=== PATIENT | female | born 1930 | race Caucasian/White ===

== ENCOUNTER → 2016-09-27 | Outpatient (CLI) | payer MEDICARE, OTHER ==
[~2016-09-27] MED LIST: AMLODIPINE BESYL5 MG PO; AMPICILLIN500 MG PO; ANTIVERT12.5 MG PO; ASPIR-LOW81 MG PO; ASPIRIN81 M1 PO; CALCIUM + VITA1 EAC2 PO; CALCIUM WITH D1 CTB PO; CARDIZEM CD240 MG PO; CARTIA XT240 MG PO; CEFTIN125 MG/5 M PO; CENTRUM SILVER1 TA1 PO; CIPRO500 MG PO; CITRACAL + D 311 TAB PO; COLACE100 MG PO; COUMADIN4 M2 PO; COUMADIN6 M2 PO; CRESTOR10 M1 PO; Coumadin2 MG PO; Coumadin2.5 MG PO; Coumadin5 MG PO; FLOMAX0.4 MG PO; HYDROCHLOROTHIA25 M1 PO; IMDUR SA60 M1 PO; JANTOVEN4 M1 PO; KETOROLAC TROMET5 M3 OD; LEVOTHYROXIN0.075 MG PO; LEVOTHYROXINE0.05 MG PO; LISINOPRIL20 MG PO; LOVENOX EASYINJ1 DEV SC; MULTI VITAMINS1 TAB PO; NORVASC2.5 MG PO; OCUFLOX 0.3% 5 M5 ML INTRAOC; OCUFLOX 0.3% 5 M5 ML OS; OCUFLOX 0.3% 5 M5 ML OU; OMEPRAZOLE20 M2 PO; PRILOSEC20 M1 PO; PROMETHAZINE12.5 M1 PO; RITE AID ACID150 MG PO; SENOKOT S 50 MG1 TAB PO; SYNTHROID,LEVO75 MCG PO; Synthroid,Lev100 MCG PO; Synthroid,Levo25 MCG PO; Synthroid,Levo50 MCG PO; TOPROL XL25 MG PO; TOPROL XL50 M1 PO; VITAMIN C500 M4 PO; VITAMIN C500 MG/15 PO; WARFARIN2 MG PO; ZOCOR10 MG PO; ZOFRAN ODT4 MG SL; ZOFRAN4 MG PO; Zofran4 MG PO
[2016-09-27 12:22] LABS: BASO # 0.1 10*3/uL (0.0-0.1); BASO % 2.1 % (0.0-1.0); EOS # 0.1 10*3/uL (0.0-0.4); EOS % 2.8 % (1.0-4.0); HEMATOCRIT 33.1 % (37.0-47.0); LYMPH # 0.9 10*3/uL (1.3-4.4); LYMPH % 19.2 % (27.0-41.0); MEAN CELL VOLUME 96.5 fl (81.0-99.0); MEAN CORPUSCULAR HGB 32.1 pg (27.0-31.0); MEAN CORPUSCULAR HGB CONC 33.2 g/dl (33.0-37.0); MEAN PLATELET VOLUME 9.6 fl (9.6-12.3); MONO # 0.6 10*3/uL (0.1-1.0); MONO % 12.6 % (3.0-9.0); NEUT % 63.1 % (47.0-73.0); PLATELET COUNT AUTOMATED 261 10*3/uL (130-400); RED BLOOD COUNT 3.43 10*6/uL (4.10-5.10); RED CELL DISTRI WIDTH 12.6 % (0-14.5); WHITE BLOOD COUNT 4.7 10*3/uL (4.8-10.8)
[2016-09-27 12:56] LABS: ALBUMIN 3.3 gm/dl (3.1-4.5); ALKALINE PHOSPHATASE 189 U/L (45-117); BILIRUBIN, TOTAL 0.6 mg/dl (0.2-1.0); BUN 15 mg/dl (7-24); CARBON DIOXIDE 29 mmol/L (21-32); CHLORIDE 96 mmol/L (98-107); EST GLOM FILT AFRICAN AMERICAN > 60 ml/min; GLUCOSE 91 mg/dL (65-99); POTASSIUM 4.2 mmol/L (3.5-5.1); SGOT/AST 33 IU/L (3-35); SGPT/ALT 41 U/L (12-78); SODIUM 133 mmol/L (136-145); TOTAL PROTEIN 7.2 gm/dL (6.4-8.2)
== END | disposition home or self-care (01) ==
LOC: LAB 11:49
PROVIDERS: Family Medicine
DX: R41.0 Disorientation, unspecified (principal); R20.0 Anesthesia of skin

== ENCOUNTER 2016-11-06 02:08 | Inpatient (IN) | payer MEDICARE, OTHER ==
[~2016-11-06] VITALS: Ht 157.4 cm; Wt 44.9 kg
[~2016-11-06 02:08] MED LIST changes: -LISINOPRIL20 MG PO; +ZESTRIL40 MG PO
[2016-11-06 02:14] VITALS: BP 175/80
[2016-11-06 02:57] LABS: BASO # 0.1 10*3/uL (0.0-0.1); BASO % 0.9 % (0.0-1.0); EOS # 0.1 10*3/uL (0.0-0.4); EOS % 2.2 % (1.0-4.0); HEMATOCRIT 28.2 % (37.0-47.0); HEMOGLOBIN 9.2 g/dl (12.0-16.0); LYMPH # 1.1 10*3/uL (1.3-4.4); LYMPH % 17.2 % (27.0-41.0); MEAN CELL VOLUME 98.9 fl (81.0-99.0); MEAN CORPUSCULAR HGB 32.3 pg (27.0-31.0); MEAN CORPUSCULAR HGB CONC 32.6 g/dl (33.0-37.0); MEAN PLATELET VOLUME 9.6 fl (9.6-12.3); MONO # 0.8 10*3/uL (0.1-1.0); NEUT # 4.3 10*3/uL (2.3-7.9); NEUT % 66.5 % (47.0-73.0); PLATELET COUNT AUTOMATED 236 10*3/uL (130-400); RED BLOOD COUNT 2.85 10*6/uL (4.10-5.10); RED CELL DISTRI WIDTH 12.5 % (0-14.5); WHITE BLOOD COUNT 6.4 10*3/uL (4.8-10.8)
[2016-11-06 03:09] LABS: BILIRUBIN NEGATIVE (NEGATIVE); BLOOD NEGATIVE (NEGATIVE); CLARITY CLEAR (CLEAR); COLOR YELLOW (YELLOW); GLUCOSE NEGATIVE (NEGATIVE); KETONE NEGATIVE (NEGATIVE); LEUKO ESTERASE 1+ (NEGATIVE); NITRITE NEGATIVE (NEGATIVE); PH 6.5 (5.0-9.0); UROBILINOGEN 0.2 E.U./dl (0.2-1.0)
[2016-11-06 03:10] LABS: ACT PARTIAL THROMBO TIME 40.2 SECONDS (20.8-31.5); INTERNATIONAL NORM RATIO 3.5 (2.0-3.5)
[2016-11-06 03:15] LABS: BACTERIA TRACE; WBC 21-30 wbc/hpf (0-5)
[2016-11-06 03:17] LABS: ALKALINE PHOSPHATASE 130 U/L (45-117); BUN 17 mg/dl (7-24); CHLORIDE 102 mmol/L (98-107); CREATININE 0.82 mg/dL (0.55-1.02); LIPASE 145 U/L (73-393); POTASSIUM 4.2 mmol/L (3.5-5.1); SGOT/AST 28 IU/L (3-35); SGPT/ALT 31 U/L (12-78); SODIUM 138 mmol/L (136-145); TOTAL PROTEIN 6.4 gm/dL (6.4-8.2)
[2016-11-06 03:24] LABS: TROPONIN I < 0.015 ng/ml (<0.045)
[2016-11-06 05:00] VITALS: BP 166/77
[2016-11-06 08:00] VITALS: BP 128/74
--- NOTE | 2016-11-06 09:00 | NUR ---
Batch Unloader in to talk to patient. Patient states lives at home with alone. There are few steps in the home. Physician: in [place], doesn't remember his name [facility]acy: [facility] Home health services: none Patient's level of ADLs: INDEPENDENT Patient has working utilities: all working DME: walker Follow-up physician's appointment after d/c: will be made by hospitalist nurse director upon discharge Does patient want to access PORTAL?: no Discharge plan discussed with patient, patient lives at home a lone, she uses a walker for ambulation, patient stated that she is independent in adls, she also stated that she has a neighbor and his that look after her, set her medications out and take her wherever she needs to go. discussed with patient a discharge plan and she stated she would be returning home, also discussed VNA and she refused any services at this time, case management will follow. BARBARA AUSTIN
[2016-11-06] MEDS ORDERED: COUMADIN4 M2 PO (09:38)
--- NOTE | 2016-11-06 09:39 | NUR ---
[facility] CALLED AT THIS TIME REGARDING VERIFICATION OF MEDS. MEDS VERIFIED AT THIS TIME PER POLICY.
[2016-11-06 12:00] VITALS: BP 164/76
--- NOTE | 2016-11-06 13:39 | NUR ---
PHYSICAL THERAPY PAtient evaluated on 4, full evaluation to follow. Continue with PT as per plan of care with fall precautions. Home, as prior, for d/c planning - with home health RN prn. PAtient is low complexity via chart review, tests and evaluation: 30436. Thank you for this referral. marion Cervantes,PT
[2016-11-06 16:00] VITALS: BP 160/53
[2016-11-06 20:00] VITALS: BP 156/42
[2016-11-07] VITALS: BP 159/72
[2016-11-07 05:58] LABS: ALBUMIN 2.8 gm/dl (3.1-4.5); ALKALINE PHOSPHATASE 109 U/L (45-117); BUN 12 mg/dl (7-24); CHLORIDE 106 mmol/L (98-107); CREATININE 0.69 mg/dL (0.55-1.02); POTASSIUM 4.4 mmol/L (3.5-5.1); SGOT/AST 27 IU/L (3-35); SGPT/ALT 25 U/L (12-78); SODIUM 139 mmol/L (136-145); TOTAL PROTEIN 5.7 gm/dL (6.4-8.2)
[2016-11-07 06:12] LABS: BASO # 0.1 10*3/uL (0.0-0.1); BASO % 1.5 % (0.0-1.0); EOS # 0.2 10*3/uL (0.0-0.4); HEMATOCRIT 26.5 % (37.0-47.0); HEMOGLOBIN 8.9 g/dl (12.0-16.0); LYMPH # 1.3 10*3/uL (1.3-4.4); LYMPH % 26.3 % (27.0-41.0); MEAN CELL VOLUME 99.6 fl (81.0-99.0); MEAN CORPUSCULAR HGB 33.5 pg (27.0-31.0); MEAN CORPUSCULAR HGB CONC 33.6 g/dl (33.0-37.0); MEAN PLATELET VOLUME 10.6 fl (9.6-12.3); MONO # 0.6 10*3/uL (0.1-1.0); MONO % 12.2 % (3.0-9.0); NEUT # 2.6 10*3/uL (2.3-7.9); NEUT % 54.8 % (47.0-73.0); PLATELET COUNT AUTOMATED 237 10*3/uL (130-400); RED BLOOD COUNT 2.66 10*6/uL (4.10-5.10); RED CELL DISTRI WIDTH 12.8 % (0-14.5); WHITE BLOOD COUNT 4.8 10*3/uL (4.8-10.8)
[2016-11-07 08:00] VITALS: BP 188/66
--- NOTE | 2016-11-07 09:00 | NUR ---
case management visits with patient, patient denies any home needs
--- NOTE | 2016-11-07 10:20 | NUR ---
PHYSICAL THERAPY Candy seen this AM 1:1 for her therapy session and did very well this AM. All transfers were supervision X 1, no LOB. Gait with her wheeled walker 85' X 2, supervision X 1, and little verbal cueing for gait, walker, turn and balance safety, Pt has IV Pole today, back supinr in bed call light phone and breakfast in at this time. MEGHAN ROTHMAN ELECTRIC MOTOR ASSEMBLER AND TESTER.
[2016-11-07 12:00] VITALS: BP 160/76
--- NOTE | 2016-11-07 15:12 | NUR ---
PT C/O CONSTIPATION REQUESTING SOMETHING TO HELP BOWELS MOVE, ADMINISTERED DULCOLAX 5MG PO PRN PER ORDERS, WILL MONITOR EFFECTS
[2016-11-07 16:00] VITALS: BP 158/64
--- NOTE | 2016-11-07 19:25 | NUR ---
PT. A&OX3. LUNG SOUNDS DIMINISHED THROUGHOUT, PT. DENIES SOB AT THIS TIME. MURMUR ON AUSCULTATION, NO EDEMA, PPP, DENIES CHEST PAIN AT THIS TIME. PT. AMBULATES WITH WALKER AND 1 ASSIST. CALL LIGHT WITHIN REACH, BED IN LOWEST POSITION, WHEELS LOCKED.
[2016-11-07 20:00] VITALS: BP 123/82
--- NOTE | 2016-11-07 23:19 | NUR ---
24 HOUR CHART CHECK COMPLETED AT THIS TIME.
[2016-11-08] VITALS: BP 198/78; BP 198/80
--- NOTE | 2016-11-08 00:22 | NUR ---
PADMINI NOTIFIED ME OF PT. HIGH BP. OBTAINED MANUAL 198/80. BP AT THIS TIME. CALLED DR. JARA, HE SAID HE WOULD PUT IN ORDERS FOR HYDRALAZINE.
--- NOTE | 2016-11-08 02:48 | NUR ---
PT. BP RECHECKED 130/70, PT. STILL ANXIOUS, GIVEN RESTORIL 15 MG @ 0248. CALL LIGHT WITHIN WITHIN REACH, SON AT BEDSIDE.
[2016-11-08 06:37] LABS: BASO # 0.1 10*3/uL (0.0-0.1); BASO % 0.9 % (0.0-1.0); EOS # 0.2 10*3/uL (0.0-0.4); EOS % 3.6 % (1.0-4.0); HEMATOCRIT 25.6 % (37.0-47.0); HEMOGLOBIN 8.4 g/dl (12.0-16.0); LYMPH # 0.9 10*3/uL (1.3-4.4); LYMPH % 14.8 % (27.0-41.0); MEAN CELL VOLUME 97.3 fl (81.0-99.0); MEAN CORPUSCULAR HGB 31.9 pg (27.0-31.0); MEAN CORPUSCULAR HGB CONC 32.8 g/dl (33.0-37.0); MONO # 0.8 10*3/uL (0.1-1.0); MONO % 11.8 % (3.0-9.0); NEUT # 4.4 10*3/uL (2.3-7.9); NEUT % 68.7 % (47.0-73.0); PLATELET COUNT AUTOMATED 209 10*3/uL (130-400); RED BLOOD COUNT 2.63 10*6/uL (4.10-5.10); RED CELL DISTRI WIDTH 12.9 % (0-14.5); WHITE BLOOD COUNT 6.4 10*3/uL (4.8-10.8)
[2016-11-08 07:00] LABS: ALBUMIN 2.6 gm/dl (3.1-4.5); ALKALINE PHOSPHATASE 111 U/L (45-117); BUN 10 mg/dl (7-24); CHLORIDE 105 mmol/L (98-107); CREATININE 0.55 mg/dL (0.55-1.02); POTASSIUM 3.6 mmol/L (3.5-5.1); SGOT/AST 26 IU/L (3-35); SGPT/ALT 26 U/L (12-78); SODIUM 140 mmol/L (136-145); TOTAL PROTEIN 5.6 gm/dL (6.4-8.2)
[2016-11-08 08:00] VITALS: BP 142/60
[2016-11-08 10:55] LABS: INTERNATIONAL NORM RATIO 1.7 (2.0-3.5)
[2016-11-08] MEDS ORDERED: CIPRO500 MG PO (12:28)
[2016-11-08] MEDS ORDERED: COUMADIN2 MG PO (12:28)
--- NOTE | 2016-11-08 13:38 | NUR ---
SPOEK TO PT REGARDING DISCHARGE TODAY. SHE STATES "OH YES I AM HOPING TO GO HOME TODAY." DR GARCIA NOTIFIED
--- NOTE | 2016-11-08 14:52 | NUR ---
PER PT CALLED HER FRIEND KAREN TO ARRANGE A RIDE HOME AT TIME OF DISCHARGE. KAREN STATES HE WILL BE HERE TO GET HER AROUND 3:30-4PM
[2016-11-08 16:00] VITALS: BP 160/59
--- NOTE | 2016-11-08 16:30 | NUR ---
CALL PLACED TO PT'S FRIEND KAREN TO INCQUIRE ABOUT INTERN ARCHITECT TIME. NO ANSWER AT THIS TIME.
--- NOTE | 2016-11-08 17:19 | NUR ---
Discharge instructions reviewed with patient/family. Patient receptive and verbalizes understanding. Follow-up care arranged. Written instructions given to patient/family. Pt transported to [facility] via wheelchair, accompanied by staff and friend.
--- NOTE | 2016-11-11 07:48 | NUR ---
PHYSICAL THERAPY CO-SIGN I approve of the Phyical Therapy notes written above. ZA MIN PT
== END 2016-11-08 17:19 | disposition home or self-care (01) | DRG 872 ==
LOC: ED 02:08 → EDHOLD 03:55 → 4E 03:55
PROVIDERS: Emergency Medicine Emergency Medical Services; Family Medicine; Internal Medicine; Registered Nurse; ADMIT Internal Medicine
DX: A41.9 Sepsis, unspecified organism (principal); E44.0 Moderate protein-calorie malnutrition; I48.0 Paroxysmal atrial fibrillation; D68.59 Other primary thrombophilia; E83.51 Hypocalcemia; N39.0 Urinary tract infection, site not specified; R54 Age-related physical debility; I10 Essential (primary) hypertension; Z68.1 Body mass index [BMI] 19.9 or less, adult; M79.601 Pain in right arm; E78.5 Hyperlipidemia, unspecified; E03.9 Hypothyroidism, unspecified; I25.10 Atherosclerotic heart disease of native coronary artery without angina pectoris; D64.9 Anemia, unspecified; Z86.73 Personal history of transient ischemic attack (TIA), and cerebral infarction without residual deficits; Z79.01 Long term (current) use of anticoagulants; I25.2 Old myocardial infarction; Z88.2 Allergy status to sulfonamides; Z88.8 Allergy status to other drugs, medicaments and biological substances; Z91.09 Other allergy status, other than to drugs and biological substances; Z79.899 Other long term (current) drug therapy; Z90.49 Acquired absence of other specified parts of digestive tract; Z98.51 Tubal ligation status; Z87.81 Personal history of (healed) traumatic fracture; Z98.49 Cataract extraction status, unspecified eye; Z82.49 Family history of ischemic heart disease and other diseases of the circulatory system; Z79.82 Long term (current) use of aspirin; M79.602 Pain in left arm

== ENCOUNTER 2017-02-08 07:16 | Inpatient (IN) | payer MEDICARE, OTHER ==
[~2017-02-08] VITALS: Ht 152.4 cm; Wt 43.7 kg
--- NOTE | ~2017-02-08 | EKG ---
[place], [place] ELECTROCARDIOGRAM REPORT NAME: AVINASH GONZALEZ UNIT #: [id number] ROOM: 508 DOCTOR: JOANN CARLIN,ES BIRTHDATE: [birth year] DOS: 02/08/2017 TIME: 7:54 a.m. IMPRESSION: 1. Sinus rhythm. 2. Baseline artifacts. 3. Nondiagnostic ST elevation in the anterior leads, cannot rule out subacute or old infarction. 4. Normal QT interval. ES DAVID MD CM:EKGRPT:ELECTROCARDIOGRAM REPORT [id number] ES DAVID MD
[2017-02-08 07:16] VITALS: BP 178/80
[~2017-02-08 07:16] MED LIST changes: +COUMADIN2 MG PO
[2017-02-08 07:27] LABS: BILIRUBIN NEGATIVE (NEGATIVE); BLOOD TRACE-INTACT (NEGATIVE); CLARITY CLEAR (CLEAR); COLOR YELLOW (YELLOW); GLUCOSE NEGATIVE (NEGATIVE); KETONE NEGATIVE (NEGATIVE); LEUKO ESTERASE 2+ (NEGATIVE); NITRITE NEGATIVE (NEGATIVE); UROBILINOGEN 0.2 E.U./dl (0.2-1.0)
[2017-02-08 07:33] LABS: BASO # 0.1 10*3/uL (0.0-0.1); BASO % 0.8 % (0.0-1.0); EOS % 0.2 % (1.0-4.0); HEMATOCRIT 32.5 % (37.0-47.0); HEMOGLOBIN 11.1 g/dl (12.0-16.0); LYMPH # 0.7 10*3/uL (1.3-4.4); LYMPH % 7.2 % (27.0-41.0); MEAN CELL VOLUME 95.6 fl (81.0-99.0); MEAN CORPUSCULAR HGB 32.6 pg (27.0-31.0); MEAN CORPUSCULAR HGB CONC 34.2 g/dl (33.0-37.0); MEAN PLATELET VOLUME 9.4 fl (9.6-12.3); MONO # 0.7 10*3/uL (0.1-1.0); MONO % 6.8 % (3.0-9.0); NEUT # 8.4 10*3/uL (2.3-7.9); NEUT % 84.7 % (47.0-73.0); PLATELET COUNT AUTOMATED 270 10*3/uL (130-400); RED CELL DISTRI WIDTH 12.3 % (0-14.5); WHITE BLOOD COUNT 9.9 10*3/uL (4.8-10.8)
[2017-02-08] MEDS ORDERED: COUMADIN5 M2 PO (07:38)
[2017-02-08] MEDS ORDERED: PEPCID COMPLET1 EACH PO (07:41)
[2017-02-08 07:44] LABS: ACT PARTIAL THROMBO TIME 33.5 SECONDS (20.8-31.5); INTERNATIONAL NORM RATIO 2.4 (2.0-3.5)
[2017-02-08 07:54] LABS: BACTERIA 1+; WBC 21-30 wbc/hpf (0-5)
[2017-02-08 07:55] LABS: ALBUMIN 3.8 gm/dl (3.1-4.5); ALKALINE PHOSPHATASE 92 U/L (45-117); BUN 17 mg/dl (7-24); CHLORIDE 93 mmol/L (98-107); CREATININE 0.78 mg/dL (0.55-1.02); POTASSIUM 4.4 mmol/L (3.5-5.1); SGOT/AST 25 IU/L (3-35); SGPT/ALT 27 U/L (12-78); SODIUM 131 mmol/L (136-145); TOTAL PROTEIN 7.3 gm/dL (6.4-8.2)
[2017-02-08 08:00] LABS: TROPONIN I < 0.015 ng/ml (<0.045)
[2017-02-08 09:02] VITALS: BP 180/82
[2017-02-08 09:08] VITALS: BP 163/91
[2017-02-08 09:15] VITALS: BP 163/91
[2017-02-08] MEDS ORDERED: ESTRACE 0.01%42.5 GM V (13:31)
[2017-02-08 16:00] VITALS: BP 138/38
[2017-02-08 20:00] VITALS: BP 140/50
[2017-02-09] VITALS: BP 138/50
[2017-02-09 06:49] LABS: BASO # 0.1 10*3/uL (0.0-0.1); EOS # 0.1 10*3/uL (0.0-0.4); HEMATOCRIT 28.9 % (37.0-47.0); HEMOGLOBIN 9.6 g/dl (12.0-16.0); LYMPH # 1.4 10*3/uL (1.3-4.4); LYMPH % 28.8 % (27.0-41.0); MEAN CELL VOLUME 96.7 fl (81.0-99.0); MEAN CORPUSCULAR HGB 32.1 pg (27.0-31.0); MEAN CORPUSCULAR HGB CONC 33.2 g/dl (33.0-37.0); MEAN PLATELET VOLUME 10.2 fl (9.6-12.3); MONO # 0.9 10*3/uL (0.1-1.0); MONO % 17.5 % (3.0-9.0); NEUT # 2.5 10*3/uL (2.3-7.9); NEUT % 49.5 % (47.0-73.0); PLATELET COUNT AUTOMATED 245 10*3/uL (130-400); RED BLOOD COUNT 2.99 10*6/uL (4.10-5.10); RED CELL DISTRI WIDTH 12.5 % (0-14.5)
[2017-02-09 06:50] LABS: ALBUMIN 3.1 gm/dl (3.1-4.5); ALKALINE PHOSPHATASE 76 U/L (45-117); BUN 11 mg/dl (7-24); CHLORIDE 98 mmol/L (98-107); CHOLESTEROL 172 mg/dL (<200); CREATININE 0.75 mg/dL (0.55-1.02); HDL CHOLESTEROL 92 mg/dl (40-60); LDL CHOLESTEROL 70 mg/dL (9-159); PHOSPHOROUS 3.4 mg/dL (2.5-4.9); POTASSIUM 4.2 mmol/L (3.5-5.1); SGOT/AST 17 IU/L (3-35); SGPT/ALT 22 U/L (12-78); SODIUM 133 mmol/L (136-145); TOTAL PROTEIN 6.2 gm/dL (6.4-8.2); TRIGLYCERIDES 49 mg/dl (<150); VLDL CHOLESTEROL 10 mg/dL (6-40)
[2017-02-09 08:00] VITALS: BP 132/59
[2017-02-09 12:00] VITALS: BP 153/54
[2017-02-09] MEDS ORDERED: MONUROL3 G1 PO (12:51)
== END 2017-02-09 16:41 | disposition home or self-care (01) | DRG 871 ==
LOC: ED 07:16 → 5E 08:44 → EDHOLD 08:44 → 5E 08:51
PROVIDERS: Student in an Organized Health Care Education/Training Program; ADMIT Internal Medicine
DX: A41.9 Sepsis, unspecified organism (principal); G93.41 Metabolic encephalopathy; D68.59 Other primary thrombophilia; I48.0 Paroxysmal atrial fibrillation; E86.0 Dehydration; E87.1 Hypo-osmolality and hyponatremia; I25.10 Atherosclerotic heart disease of native coronary artery without angina pectoris; I10 Essential (primary) hypertension; E78.5 Hyperlipidemia, unspecified; N39.0 Urinary tract infection, site not specified; R65.20 Severe sepsis without septic shock; Z66 Do not resuscitate; Z51.5 Encounter for palliative care; R54 Age-related physical debility; Z79.01 Long term (current) use of anticoagulants; Z86.73 Personal history of transient ischemic attack (TIA), and cerebral infarction without residual deficits; Z90.49 Acquired absence of other specified parts of digestive tract; Z82.49 Family history of ischemic heart disease and other diseases of the circulatory system; Z79.82 Long term (current) use of aspirin; Z79.899 Other long term (current) drug therapy; Z88.4 Allergy status to anesthetic agent; Z88.2 Allergy status to sulfonamides; Z91.09 Other allergy status, other than to drugs and biological substances

== ENCOUNTER 2017-02-20 16:56 | Inpatient (IN) | payer MEDICARE, OTHER ==
[~2017-02-20] VITALS: Ht 157.4 cm; Wt 45.5 kg
[~2017-02-20 16:56] MED LIST changes: +COUMADIN5 M2 PO; +ESTRACE 0.01%42.5 GM V; +MONUROL3 G1 PO; +PEPCID COMPLET1 EACH PO
[2017-02-20 17:06] VITALS: BP 212/74
[2017-02-20 17:27] LABS: BASO # 0.1 10*3/uL (0.0-0.1); BASO % 2.1 % (0.0-1.0); EOS # 0.1 10*3/uL (0.0-0.4); EOS % 1.7 % (1.0-4.0); HEMATOCRIT 32.7 % (37.0-47.0); LYMPH # 1.2 10*3/uL (1.3-4.4); MEAN CORPUSCULAR HGB 32.6 pg (27.0-31.0); MEAN CORPUSCULAR HGB CONC 33.6 g/dl (33.0-37.0); MEAN PLATELET VOLUME 9.8 fl (9.6-12.3); MONO # 0.9 10*3/uL (0.1-1.0); MONO % 14.8 % (3.0-9.0); NEUT # 3.5 10*3/uL (2.3-7.9); NEUT % 60.2 % (47.0-73.0); PLATELET COUNT AUTOMATED 271 10*3/uL (130-400); RED BLOOD COUNT 3.37 10*6/uL (4.10-5.10); RED CELL DISTRI WIDTH 12.8 % (0-14.5); WHITE BLOOD COUNT 5.8 10*3/uL (4.8-10.8)
[2017-02-20 17:37] LABS: ACT PARTIAL THROMBO TIME 33.7 SECONDS (20.8-31.5); INTERNATIONAL NORM RATIO 2.1 (2.0-3.5)
[2017-02-20 17:47] LABS: ALKALINE PHOSPHATASE 98 U/L (45-117); BUN 13 mg/dl (7-24); CHLORIDE 90 mmol/L (98-107); CREATININE 0.81 mg/dL (0.55-1.02); POTASSIUM 4.9 mmol/L (3.5-5.1); SGOT/AST 29 IU/L (3-35); SGPT/ALT 30 U/L (12-78); SODIUM 127 mmol/L (136-145); TOTAL PROTEIN 7.5 gm/dL (6.4-8.2)
[2017-02-20 17:49] LABS: TROPONIN I < 0.015 ng/ml (<0.045)
[2017-02-20 18:12] VITALS: BP 204/88
--- NOTE | 2017-02-20 18:28 | NUR ---
PATIENT STATES RELIEF FROM NITRO FOR JAW PAIN AT THIS TIME.
[2017-02-20 18:30] VITALS: BP 197/71
--- NOTE | 2017-02-20 19:05 | NUR ---
REPORT GIVEN TO ZANE AT THIS TIME.
--- NOTE | 2017-02-20 19:13 | NUR ---
PATIENT REPORT CALLED TO ZULEMA ECHAVARRIA AT THIS TIME.
[2017-02-20 19:30] VITALS: BP 200/80
--- NOTE | 2017-02-20 19:30 | NUR ---
A 86, admitted to , under the services of IRMA Ribera DO with a diagnosis of ELEVATED BLOOD PRESSURE. Chief complaint is NECK AND ARM PAIN. Patient arrived via bed from ER. Monitor applied. Initial assessment completed. Vital signs taken and recorded. IRMA RIBERA DO notified of admission to the unit. Orders received. See assessment for past medical history, medications and allergies. Patient and/or family oriented to unit. [facility]. Clothing/patient valuable form completed. CHARO NUNEZ
--- NOTE | 2017-02-20 20:30 | NUR ---
BP STILL HIGH AT 200/[address] GERMAN NOTIFIED AND 10MG HYDRALAZINE ORDERED.
--- NOTE | 2017-02-20 21:15 | NUR ---
PATIENTS BP. 120 OVER 40 MANUAL. FLUIDS ORDERED BY DR. GERMAN AND NITRO PATCH REMOVED FROM PATIENT.
[2017-02-21] VITALS: BP 109/37
--- NOTE | 2017-02-21 01:23 | NUR ---
DR. ALVAREZ NOTIFIED THAT THE PATIENTS BP HAS INCREASED AFTER THE BOLUS. BP AT THIS TIME. IS 130/45
[2017-02-21 06:08] LABS: BASO # 0.1 10*3/uL (0.0-0.1); BASO % 1.6 % (0.0-1.0); EOS # 0.2 10*3/uL (0.0-0.4); EOS % 4.4 % (1.0-4.0); HEMOGLOBIN 9.1 g/dl (12.0-16.0); LYMPH # 1.1 10*3/uL (1.3-4.4); MEAN CELL VOLUME 95.7 fl (81.0-99.0); MEAN CORPUSCULAR HGB 32.3 pg (27.0-31.0); MEAN CORPUSCULAR HGB CONC 33.7 g/dl (33.0-37.0); MEAN PLATELET VOLUME 9.7 fl (9.6-12.3); MONO # 0.6 10*3/uL (0.1-1.0); MONO % 16.1 % (3.0-9.0); NEUT # 1.9 10*3/uL (2.3-7.9); NEUT % 49.9 % (47.0-73.0); PLATELET COUNT AUTOMATED 236 10*3/uL (130-400); RED BLOOD COUNT 2.82 10*6/uL (4.10-5.10); RED CELL DISTRI WIDTH 12.7 % (0-14.5); WHITE BLOOD COUNT 3.9 10*3/uL (4.8-10.8)
[2017-02-21 06:44] LABS: BUN 15 mg/dl (7-24); CHLORIDE 98 mmol/L (98-107); CREATININE 0.79 mg/dL (0.55-1.02); PHOSPHOROUS 3.7 mg/dL (2.5-4.9); POTASSIUM 4.4 mmol/L (3.5-5.1); SGOT/AST 20 IU/L (3-35); SGPT/ALT 21 U/L (12-78); SODIUM 133 mmol/L (136-145)
[2017-02-21 06:45] LABS: ALKALINE PHOSPHATASE 70 U/L (45-117); TOTAL PROTEIN 5.8 gm/dL (6.4-8.2)
[2017-02-21 06:51] LABS: ACT PARTIAL THROMBO TIME 34.8 SECONDS (20.8-31.5); INTERNATIONAL NORM RATIO 2.2 (2.0-3.5)
[2017-02-21 08:00] VITALS: BP 150/50
[2017-02-21 12:00] VITALS: BP 138/47
[2017-02-21 16:00] VITALS: BP 115/40
[2017-02-21 20:00] VITALS: BP 133/47
--- NOTE | 2017-02-21 20:00 | NUR ---
ASSUMED CARE OF PATIENT. ASSESSMENT COMPLETE. RESTING IN BED. NO COMPLAINTS. CALL LIGHT IN REACH. BED ALARM ON. WILL CONTINUE TO MONITOR
[2017-02-22] VITALS: BP 128/43
--- NOTE | 2017-02-22 02:00 | NUR ---
SLEEPING. RESP EASY AND NONLABORED ON ROOM AIR. NO DISTRESS NOTED. CM INTACT. CALL LIGHT IN REACH. WILL CONTINUE TO MONITOR.
[2017-02-22 06:18] LABS: BASO # 0.1 10*3/uL (0.0-0.1); BASO % 1.8 % (0.0-1.0); EOS # 0.2 10*3/uL (0.0-0.4); EOS % 2.8 % (1.0-4.0); LYMPH # 1.1 10*3/uL (1.3-4.4); LYMPH % 17.3 % (27.0-41.0); MEAN CELL VOLUME 98.2 fl (81.0-99.0); MEAN CORPUSCULAR HGB 32.7 pg (27.0-31.0); MEAN CORPUSCULAR HGB CONC 33.3 g/dl (33.0-37.0); MEAN PLATELET VOLUME 10.4 fl (9.6-12.3); MONO # 0.9 10*3/uL (0.1-1.0); MONO % 13.9 % (3.0-9.0); NEUT # 3.9 10*3/uL (2.3-7.9); PLATELET COUNT AUTOMATED 247 10*3/uL (130-400); RED BLOOD COUNT 2.75 10*6/uL (4.10-5.10); RED CELL DISTRI WIDTH 12.9 % (0-14.5); WHITE BLOOD COUNT 6.1 10*3/uL (4.8-10.8)
[2017-02-22 06:50] LABS: INTERNATIONAL NORM RATIO 1.9 (2.0-3.5)
[2017-02-22 06:52] LABS: ALBUMIN 2.9 gm/dl (3.1-4.5); BUN 15 mg/dl (7-24); CHLORIDE 98 mmol/L (98-107); POTASSIUM 4.4 mmol/L (3.5-5.1); SODIUM 135 mmol/L (136-145)
[2017-02-22 06:57] LABS: ALKALINE PHOSPHATASE 70 U/L (45-117); SGOT/AST 21 IU/L (3-35); SGPT/ALT 22 U/L (12-78); TOTAL PROTEIN 5.7 gm/dL (6.4-8.2)
[2017-02-22 08:00] VITALS: BP 130/46
[2017-02-22 12:00] VITALS: BP 117/48
--- NOTE | 2017-02-22 15:20 | NUR ---
Discharge instructions reviewed with patient/family. Patient receptive and verbalizes understanding. Follow-up care arranged. Written instructions given to patient/family. JAMEL GARCIA
== END 2017-02-22 15:20 | disposition home or self-care (01) | DRG 304 ==
LOC: ED 16:56 → EDHOLD 18:37 → 4E 18:38
PROVIDERS: Emergency Medicine; Family Medicine; ADMIT Emergency Medicine
DX: I16.1 Hypertensive emergency (principal); G93.41 Metabolic encephalopathy; E44.0 Moderate protein-calorie malnutrition; D68.59 Other primary thrombophilia; I50.32 Chronic diastolic (congestive) heart failure; E83.41 Hypermagnesemia; E87.1 Hypo-osmolality and hyponatremia; I48.0 Paroxysmal atrial fibrillation; D64.9 Anemia, unspecified; Z68.1 Body mass index [BMI] 19.9 or less, adult; Z66 Do not resuscitate; I16.0 Hypertensive urgency; I11.0 Hypertensive heart disease with heart failure; I73.9 Peripheral vascular disease, unspecified; E78.5 Hyperlipidemia, unspecified; Z51.5 Encounter for palliative care; I25.10 Atherosclerotic heart disease of native coronary artery without angina pectoris; R73.9 Hyperglycemia, unspecified; E03.9 Hypothyroidism, unspecified; F41.9 Anxiety disorder, unspecified; T45.515A Adverse effect of anticoagulants, initial encounter; K21.9 Gastro-esophageal reflux disease without esophagitis; D72.819 Decreased white blood cell count, unspecified; Z79.899 Other long term (current) drug therapy; Z86.73 Personal history of transient ischemic attack (TIA), and cerebral infarction without residual deficits; Z88.2 Allergy status to sulfonamides; Z88.8 Allergy status to other drugs, medicaments and biological substances; Z91.09 Other allergy status, other than to drugs and biological substances; Z79.01 Long term (current) use of anticoagulants; Z90.49 Acquired absence of other specified parts of digestive tract; Z98.49 Cataract extraction status, unspecified eye; Z98.51 Tubal ligation status; Z87.81 Personal history of (healed) traumatic fracture; Z82.49 Family history of ischemic heart disease and other diseases of the circulatory system; Z79.82 Long term (current) use of aspirin; Z87.440 Personal history of urinary (tract) infections; Y92.89 Other specified places as the place of occurrence of the external cause

== ENCOUNTER 2017-12-23 19:04 | Inpatient (IN) | payer MEDICARE, OTHER ==
[~2017-12-23] VITALS: Ht 157.4 cm; Wt 42.8 kg
--- NOTE | ~2017-12-23 | EKG ---
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
--- NOTE | ~2017-12-23 | EKG ---
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
--- NOTE | ~2017-12-23 | EKG ---
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
[2017-12-23 19:05] VITALS: BP 205/87
[2017-12-23 19:26] LABS: BASO # 0.1 10*3/uL (0.0-0.1); BASO % 1.9 % (0.0-1.0); EOS % 0.4 % (1.0-4.0); HEMATOCRIT 34.2 % (37.0-47.0); HEMOGLOBIN 11.4 g/dl (12.0-16.0); LYMPH # 0.7 10*3/uL (1.3-4.4); LYMPH % 14.5 % (27.0-41.0); MEAN CELL VOLUME 98.8 fl (81.0-99.0); MEAN CORPUSCULAR HGB 32.9 pg (27.0-31.0); MEAN CORPUSCULAR HGB CONC 33.3 g/dl (33.0-37.0); MEAN PLATELET VOLUME 9.4 fl (9.6-12.3); MONO # 0.5 10*3/uL (0.1-1.0); NEUT # 3.4 10*3/uL (2.3-7.9); PLATELET COUNT AUTOMATED 253 10*3/uL (130-400); RED BLOOD COUNT 3.46 10*6/uL (4.10-5.10); RED CELL DISTRI WIDTH 12.3 % (0-14.5); WHITE BLOOD COUNT 4.7 10*3/uL (4.8-10.8)
[2017-12-23 19:28] VITALS: BP 180/82
[2017-12-23 19:34] LABS: ACT PARTIAL THROMBO TIME 30.4 SECONDS (20.8-31.5); INTERNATIONAL NORM RATIO 1.8 (2.0-3.5)
[2017-12-23 19:43] LABS: ALBUMIN 3.7 gm/dl (3.1-4.5); ALKALINE PHOSPHATASE 74 U/L (45-117); BUN 15 mg/dl (7-24); CHLORIDE 95 mmol/L (98-107); CREATININE 0.91 mg/dL (0.55-1.02); SGOT/AST 17 IU/L (3-35); SGPT/ALT 16 U/L (12-78); SODIUM 133 mmol/L (136-145); TOTAL PROTEIN 7.3 gm/dL (6.4-8.2)
[2017-12-23 19:44] LABS: TROPONIN I < 0.015 ng/ml (<0.045)
[2017-12-23 20:40] VITALS: BP 150/55
[2017-12-23 20:55] VITALS: BP 155/48
[2017-12-23 21:36] LABS: BILIRUBIN NEGATIVE (NEGATIVE); BLOOD NEGATIVE (NEGATIVE); CLARITY SL CLOUDY (CLEAR); COLOR YELLOW (YELLOW); GLUCOSE NEGATIVE (NEGATIVE); KETONE TRACE (NEGATIVE); LEUKO ESTERASE TRACE (NEGATIVE); NITRITE NEGATIVE (NEGATIVE); UROBILINOGEN 0.2 E.U./dl (0.2-1.0)
[2017-12-23 21:49] LABS: BACTERIA 2+; RBC 0-2 rbc/hpf (0-2); WBC 16-20 wbc/hpf (0-5)
[2017-12-23 22:00] VITALS: BP 182/76
[2017-12-23 22:01] VITALS: BP 160/51
[2017-12-24] VITALS: BP 160/74
[2017-12-24 03:21] LABS: BASO # 0.1 10*3/uL (0.0-0.1); EOS # 0.1 10*3/uL (0.0-0.4); EOS % 1.4 % (1.0-4.0); HEMATOCRIT 31.9 % (37.0-47.0); HEMOGLOBIN 10.5 g/dl (12.0-16.0); LYMPH # 1.1 10*3/uL (1.3-4.4); LYMPH % 20.9 % (27.0-41.0); MEAN CELL VOLUME 98.2 fl (81.0-99.0); MEAN CORPUSCULAR HGB 32.3 pg (27.0-31.0); MEAN CORPUSCULAR HGB CONC 32.9 g/dl (33.0-37.0); MONO # 0.8 10*3/uL (0.1-1.0); MONO % 14.8 % (3.0-9.0); NEUT # 3.1 10*3/uL (2.3-7.9); NEUT % 60.7 % (47.0-73.0); PLATELET COUNT AUTOMATED 244 10*3/uL (130-400); RED BLOOD COUNT 3.25 10*6/uL (4.10-5.10); RED CELL DISTRI WIDTH 12.4 % (0-14.5); WHITE BLOOD COUNT 5.1 10*3/uL (4.8-10.8)
[2017-12-24 03:28] LABS: INTERNATIONAL NORM RATIO 1.8 (2.0-3.5)
[2017-12-24 03:33] LABS: BUN 12 mg/dl (7-24); CHLORIDE 100 mmol/L (98-107); CREATININE 0.69 mg/dL (0.55-1.02); POTASSIUM 4.1 mmol/L (3.5-5.1); SODIUM 137 mmol/L (136-145)
[2017-12-24 03:37] LABS: CHOLESTEROL 159 mg/dL (<200); HDL CHOLESTEROL 84 mg/dl (40-60); LDL CHOLESTEROL 67 mg/dL (9-159); PHOSPHOROUS 3.5 mg/dL (2.5-4.9); TRIGLYCERIDES 42 mg/dl (<150); VLDL CHOLESTEROL 8 mg/dL (6-40)
[2017-12-24 08:00] VITALS: BP 154/50
[2017-12-24] MEDS ORDERED: COUMADIN4 M2 PO (11:34)
[2017-12-24 12:00] VITALS: BP 112/50
[2017-12-24 16:00] VITALS: BP 118/53
[2017-12-24 20:00] VITALS: BP 156/60
[2017-12-25] VITALS: BP 136/46
[2017-12-25 06:52] LABS: BASO # 0.1 10*3/uL (0.0-0.1); BASO % 2.3 % (0.0-1.0); EOS # 0.2 10*3/uL (0.0-0.4); EOS % 3.7 % (1.0-4.0); HEMATOCRIT 29.3 % (37.0-47.0); HEMOGLOBIN 9.5 g/dl (12.0-16.0); LYMPH # 1.2 10*3/uL (1.3-4.4); LYMPH % 28.1 % (27.0-41.0); MEAN CORPUSCULAR HGB 32.1 pg (27.0-31.0); MEAN CORPUSCULAR HGB CONC 32.4 g/dl (33.0-37.0); MEAN PLATELET VOLUME 10.3 fl (9.6-12.3); MONO # 0.7 10*3/uL (0.1-1.0); MONO % 15.8 % (3.0-9.0); NEUT # 2.2 10*3/uL (2.3-7.9); NEUT % 50.1 % (47.0-73.0); PLATELET COUNT AUTOMATED 235 10*3/uL (130-400); RED BLOOD COUNT 2.96 10*6/uL (4.10-5.10); RED CELL DISTRI WIDTH 12.5 % (0-14.5); WHITE BLOOD COUNT 4.3 10*3/uL (4.8-10.8)
[2017-12-25 07:18] LABS: BUN 15 mg/dl (7-24); CHLORIDE 101 mmol/L (98-107); CREATININE 0.75 mg/dL (0.55-1.02); POTASSIUM 4.7 mmol/L (3.5-5.1); SODIUM 137 mmol/L (136-145)
[2017-12-25 08:00] VITALS: BP 112/52
[2017-12-25 12:00] VITALS: BP 126/56
[2017-12-25] MEDS ORDERED: AMLODIPINE BESYL5 MG PO (13:40)
[2018-01-08] MEDS ORDERED: ESTRACE 0.01%42.5 GM V (09:48)
[2018-01-11] MEDS ORDERED: COUMADIN3 M1 PO (09:06)
== END 2017-12-25 14:52 | disposition home or self-care (01) | DRG 304 ==
LOC: ED 19:04 → EDHOLD 21:10 → 5E 21:10
PROVIDERS: Internal Medicine; Student in an Organized Health Care Education/Training Program
DX: I16.1 Hypertensive emergency (principal); E43 Unspecified severe protein-calorie malnutrition; E87.2 Acidosis; E87.1 Hypo-osmolality and hyponatremia; D68.59 Other primary thrombophilia; Z68.1 Body mass index [BMI] 19.9 or less, adult; R11.2 Nausea with vomiting, unspecified; E83.42 Hypomagnesemia; I67.9 Cerebrovascular disease, unspecified; R63.6 Underweight; D64.9 Anemia, unspecified; I11.9 Hypertensive heart disease without heart failure; R73.9 Hyperglycemia, unspecified; R00.1 Bradycardia, unspecified; R01.1 Cardiac murmur, unspecified; E83.41 Hypermagnesemia; I25.10 Atherosclerotic heart disease of native coronary artery without angina pectoris; E78.5 Hyperlipidemia, unspecified; I48.0 Paroxysmal atrial fibrillation; Z88.2 Allergy status to sulfonamides; Z88.5 Allergy status to narcotic agent; Z79.82 Long term (current) use of aspirin; Z79.01 Long term (current) use of anticoagulants; Z86.73 Personal history of transient ischemic attack (TIA), and cerebral infarction without residual deficits; Z90.49 Acquired absence of other specified parts of digestive tract; Z98.49 Cataract extraction status, unspecified eye; Z30.2 Encounter for sterilization; Z82.49 Family history of ischemic heart disease and other diseases of the circulatory system

== ENCOUNTER → 2018-02-05 | Outpatient (CLI) | payer MEDICARE, OTHER ==
[~2018-02-05] MED LIST changes: +COUMADIN3 M1 PO
== END | disposition home or self-care (01) ==
LOC: MRI 10:00
DX: G93.89 Other specified disorders of brain (principal); M47.892 Other spondylosis, cervical region; M43.22 Fusion of spine, cervical region; M50.221 Other cervical disc displacement at C4-C5 level; H57.02 Anisocoria; H54.61 Unqualified visual loss, right eye, normal vision left eye; M79.601 Pain in right arm; M25.78 Osteophyte, vertebrae; Z86.73 Personal history of transient ischemic attack (TIA), and cerebral infarction without residual deficits; Z86.69 Personal history of other diseases of the nervous system and sense organs

== ENCOUNTER 2018-04-25 16:28 | Emergency (ER) | payer MEDICARE, OTHER ==
[~2018-04-25] VITALS: Ht 152.4 cm; Wt 54.4 kg
--- NOTE | ~2018-04-25 | EKG ---
[place], [place] ELECTROCARDIOGRAM REPORT NAME: AVINASH GONZALEZ UNIT #: [id number] ROOM: DOCTOR: EPIPHANY DRAFT REPORT BIRTHDATE: [birth year] [facility] Test Date: 2018-04-25 Test Time: 16:58:18 Pat Name: AVINASH GONZALEZ Department: ED Room: Gender: F Dishtank Operator: Eli Blanchard : 1930 Requested By: WON BAKER PA-C Order Number: [id number] Reading MD: Brian Morales MD Measurements Intervals [place] Rate: 48 P: 52 MA: 214 QRS: 58 QRSD: 87 T: 64 QT: 493 QTc: 441 Interpretive Statements Sinus bradycardia Probable left atrial enlargement Probable anteroseptal infarct, recent ST elevation, consider inferior injury Lateral leads are also involved Compared to ECG 01/05/2018 00:04:51 ST (T wave) deviation now present Sinus rhythm no longer present Myocardial infarct finding still present Electronically Signed On 04-27-2018 15:02:18 PST by Brian Morales MD CM:EKGRPT:ELECTROCARDIOGRAM REPORT 1658 1502 WON BAKER PA-C EPIPHANY DRAFT REPORT WON BAKER PA-C
[2018-04-25 17:09] LABS: BASO # 0.1 10*3/uL (0.0-0.1); BASO % 1.9 % (0.0-1.0); EOS # 0.2 10*3/uL (0.0-0.4); EOS % 3.2 % (1.0-4.0); HEMATOCRIT 29.9 % (37.0-47.0); HEMOGLOBIN 9.9 g/dl (12.0-16.0); LYMPH # 0.7 10*3/uL (1.3-4.4); LYMPH % 15.7 % (27.0-41.0); MEAN CORPUSCULAR HGB 33.1 pg (27.0-31.0); MEAN CORPUSCULAR HGB CONC 33.1 g/dl (33.0-37.0); MEAN PLATELET VOLUME 9.7 fl (9.6-12.3); MONO # 0.8 10*3/uL (0.1-1.0); MONO % 17.7 % (3.0-9.0); NEUT # 2.9 10*3/uL (2.3-7.9); NEUT % 61.1 % (47.0-73.0); PLATELET COUNT AUTOMATED 267 10*3/uL (130-400); RED BLOOD COUNT 2.99 10*6/uL (4.10-5.10); RED CELL DISTRI WIDTH 12.5 % (0-14.5); WHITE BLOOD COUNT 4.7 10*3/uL (4.8-10.8)
[2018-04-25 17:17] LABS: ACT PARTIAL THROMBO TIME 27.1 SECONDS (20.8-31.5); INTERNATIONAL NORM RATIO 1.2 (2.0-3.5)
[2018-04-25 17:24] LABS: ALBUMIN 3.1 gm/dl (3.1-4.5); CREATININE 1.17 mg/dL (0.55-1.02); POTASSIUM 4.9 mmol/L (3.5-5.1); TOTAL PROTEIN 6.6 gm/dL (6.4-8.2)
[2018-04-25 17:25] LABS: CKMB 1.6 ng/ml (0.5-3.6)
[2018-04-25 17:28] LABS: TROPONIN I 0.055 ng/ml (<0.045)
[2018-04-25 18:33] VITALS: BP 155/56
[2018-05-17] MEDS ORDERED: CARVEDILOL3.125 MG PO (13:33)
[2018-05-21] MEDS ORDERED: ZOFRAN4 MG PO (15:01)
[2018-07-24] MEDS ORDERED: MIRALAX17 GM PO (18:16)
[2018-07-24] MEDS ORDERED: PRESERVISION A1 EAC1 PO (18:24)
[2018-07-24] MEDS ORDERED: VITAMIN C1000 M5 PO (18:25)
[2018-07-24] MEDS ORDERED: CALCIUM + D3 E1 EACH PO (18:26)
[2018-07-24] MEDS ORDERED: ASPIRIN CHILDRE81 MG PO (18:26)
[2018-07-24] MEDS ORDERED: PEPCID COMPLET1 EACH PO (18:27)
[2018-07-27] MEDS ORDERED: AMINOPHYLLIN200 MG PO (10:54)
== END 2018-04-25 19:17 | disposition short-term general hospital (02) ==
LOC: ED 16:28
PROVIDERS: Physician Assistant
DX: G45.8 Other transient cerebral ischemic attacks and related syndromes (principal); I10 Essential (primary) hypertension; E03.9 Hypothyroidism, unspecified; E78.5 Hyperlipidemia, unspecified; Z90.49 Acquired absence of other specified parts of digestive tract; Z98.890 Other specified postprocedural states; Z98.51 Tubal ligation status; Z88.2 Allergy status to sulfonamides; Z88.8 Allergy status to other drugs, medicaments and biological substances; Z79.82 Long term (current) use of aspirin; Z79.01 Long term (current) use of anticoagulants

== ENCOUNTER 2018-05-02 08:44 | Inpatient (IN) | payer MEDICARE, OTHER ==
[~2018-05-02] VITALS: Ht 149.9 cm; Wt 45.8 kg
[2018-05-02] VITALS (9 sets, daily range): BP systolic 105–190; BP diastolic 31–71
--- NOTE | ~2018-05-02 | EKG ---
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: Mackenzie Gary : 1930 Requested By: IRMA LALA Order Number: [id number] Reading MD: Demi Gonzalez MD Measurements Intervals [place] Rate: 45 P: 39 IN: 217 QRS: 38 QRSD: 84 T: 56 QT: 503 QTc: 436 Interpretive Statements Sinus bradycardia Probable left atrial enlargement Left ventricular hypertrophy Anterior infarct, old Borderline ST elevation, inferior leads Compared to ECG 04/25/2018 16:58:18 Left ventricular hypertrophy now present Myocardial infarct finding still present ST (T wave) deviation still present Electronically Signed On 05-07-2018 9:36:21 PST by Demi Gonzalez MD CM:EKGRPT:ELECTROCARDIOGRAM REPORT 0842 0936 IRMA PEÑALOZA DRAFT REPORT IRMA LALA DO
[2018-05-02 09:09] LABS: BASO # 0.1 10*3/uL (0.0-0.1); BASO % 1.3 % (0.0-1.0); EOS # 0.1 10*3/uL (0.0-0.4); EOS % 2.1 % (1.0-4.0); HEMATOCRIT 27.3 % (37.0-47.0); HEMOGLOBIN 9.3 g/dl (12.0-16.0); LYMPH # 0.9 10*3/uL (1.3-4.4); LYMPH % 16.1 % (27.0-41.0); MEAN CELL VOLUME 98.2 fl (81.0-99.0); MEAN CORPUSCULAR HGB 33.5 pg (27.0-31.0); MEAN CORPUSCULAR HGB CONC 34.1 g/dl (33.0-37.0); MEAN PLATELET VOLUME 9.6 fl (9.6-12.3); MONO # 0.7 10*3/uL (0.1-1.0); MONO % 13.3 % (3.0-9.0); NEUT # 3.5 10*3/uL (2.3-7.9); PLATELET COUNT AUTOMATED 223 10*3/uL (130-400); RED BLOOD COUNT 2.78 10*6/uL (4.10-5.10); RED CELL DISTRI WIDTH 12.2 % (0-14.5); WHITE BLOOD COUNT 5.3 10*3/uL (4.8-10.8)
[2018-05-02 09:18] LABS: ACT PARTIAL THROMBO TIME 24.7 SECONDS (20.8-31.5); INTERNATIONAL NORM RATIO 1.6 (2.0-3.5)
[2018-05-02 09:31] LABS: ALBUMIN 3.1 gm/dl (3.1-4.5); ALKALINE PHOSPHATASE 72 U/L (45-117); BUN 17 mg/dl (7-24); CHLORIDE 94 mmol/L (98-107); CREATININE 0.71 mg/dL (0.55-1.02); LIPASE 101 U/L (73-393); SGOT/AST 15 IU/L (3-35); SGPT/ALT 14 U/L (12-78); SODIUM 130 mmol/L (136-145); TOTAL PROTEIN 6.2 gm/dL (6.4-8.2)
[2018-05-02 09:34] LABS: TROPONIN I < 0.015 ng/ml (<0.045)
[2018-05-02 10:34] LABS: BILIRUBIN NEGATIVE (NEGATIVE); BLOOD NEGATIVE (NEGATIVE); CLARITY SL CLOUDY (CLEAR); COLOR YELLOW (YELLOW); GLUCOSE NEGATIVE (NEGATIVE); KETONE NEGATIVE (NEGATIVE); LEUKO ESTERASE NEGATIVE (NEGATIVE); NITRITE NEGATIVE (NEGATIVE); SPECIFIC GRAVITY <= 1.005 (1.005-1.030); UROBILINOGEN 0.2 E.U./dl (0.2-1.0)
[2018-05-02 10:54] LABS: BACTERIA TRACE; MUCOUS 1+
[2018-05-02] MEDS ORDERED: LATANOPROST2.5 ML OPH (16:17)
[2018-05-02] MEDS ORDERED: COMBIGAN 0.2%-010 ML OPH (16:19)
[2018-05-03] VITALS (7 sets, daily range): BP systolic 147–180; BP diastolic 42–68
[2018-05-03 06:10] LABS: BASO # 0.1 10*3/uL (0.0-0.1); BASO % 2.2 % (0.0-1.0); EOS # 0.1 10*3/uL (0.0-0.4); EOS % 2.7 % (1.0-4.0); HEMATOCRIT 29.1 % (37.0-47.0); HEMOGLOBIN 9.4 g/dl (12.0-16.0); LYMPH # 1.3 10*3/uL (1.3-4.4); LYMPH % 25.3 % (27.0-41.0); MEAN CELL VOLUME 99.3 fl (81.0-99.0); MEAN CORPUSCULAR HGB 32.1 pg (27.0-31.0); MEAN CORPUSCULAR HGB CONC 32.3 g/dl (33.0-37.0); MEAN PLATELET VOLUME 10.3 fl (9.6-12.3); MONO # 0.7 10*3/uL (0.1-1.0); MONO % 14.5 % (3.0-9.0); NEUT # 2.8 10*3/uL (2.3-7.9); NEUT % 55.1 % (47.0-73.0); PLATELET COUNT AUTOMATED 252 10*3/uL (130-400); RED BLOOD COUNT 2.93 10*6/uL (4.10-5.10); RED CELL DISTRI WIDTH 12.5 % (0-14.5); WHITE BLOOD COUNT 5.1 10*3/uL (4.8-10.8)
[2018-05-03 06:24] LABS: ALBUMIN 2.9 gm/dl (3.1-4.5); BUN 13 mg/dl (7-24); CHLORIDE 99 mmol/L (98-107); POTASSIUM 3.7 mmol/L (3.5-5.1); SODIUM 134 mmol/L (136-145)
[2018-05-03 06:36] LABS: ALKALINE PHOSPHATASE 69 U/L (45-117); CREATININE 0.68 mg/dL (0.55-1.02); PHOSPHOROUS 3.4 mg/dL (2.5-4.9); SGOT/AST 16 IU/L (3-35); SGPT/ALT 12 U/L (12-78); TOTAL PROTEIN 5.8 gm/dL (6.4-8.2)
[2018-05-04] VITALS: BP 120/48
[2018-05-04 08:00] VITALS: BP 193/73
[2018-05-04 12:00] VITALS: BP 179/58
[2018-05-17] MEDS ORDERED: CARVEDILOL3.125 MG PO (13:33)
[2018-05-21] MEDS ORDERED: ZOFRAN4 MG PO (15:01)
[2018-07-24] MEDS ORDERED: MIRALAX17 GM PO (18:16)
[2018-07-24] MEDS ORDERED: PRESERVISION A1 EAC1 PO (18:24)
[2018-07-24] MEDS ORDERED: VITAMIN C1000 M5 PO (18:25)
[2018-07-24] MEDS ORDERED: ASPIRIN CHILDRE81 MG PO (18:26)
[2018-07-24] MEDS ORDERED: CALCIUM + D3 E1 EACH PO (18:26)
[2018-07-24] MEDS ORDERED: PEPCID COMPLET1 EACH PO (18:27)
[2018-07-27] MEDS ORDERED: AMINOPHYLLIN200 MG PO (10:54)
== END 2018-05-04 17:00 | disposition home health service (06) | DRG 640 ==
LOC: ED 08:44 → EDHOLD 10:37 → 4E 10:37
PROVIDERS: Emergency Medicine; Internal Medicine Nephrology; ADMIT Internal Medicine
DX: E86.0 Dehydration (principal); G93.41 Metabolic encephalopathy; J96.00 Acute respiratory failure, unspecified whether with hypoxia or hypercapnia; E44.1 Mild protein-calorie malnutrition; D68.59 Other primary thrombophilia; E87.1 Hypo-osmolality and hyponatremia; R94.31 Abnormal electrocardiogram [ECG] [EKG]; D64.9 Anemia, unspecified; I10 Essential (primary) hypertension; E78.5 Hyperlipidemia, unspecified; Z66 Do not resuscitate; Z51.5 Encounter for palliative care; I48.0 Paroxysmal atrial fibrillation; I25.10 Atherosclerotic heart disease of native coronary artery without angina pectoris; Z86.73 Personal history of transient ischemic attack (TIA), and cerebral infarction without residual deficits; Z88.4 Allergy status to anesthetic agent; Z88.2 Allergy status to sulfonamides; Z91.09 Other allergy status, other than to drugs and biological substances; Z90.49 Acquired absence of other specified parts of digestive tract; Z98.49 Cataract extraction status, unspecified eye; Z98.51 Tubal ligation status; Z82.49 Family history of ischemic heart disease and other diseases of the circulatory system; Z83.3 Family history of diabetes mellitus; Z79.82 Long term (current) use of aspirin; Z79.899 Other long term (current) drug therapy; Z68.20 Body mass index [BMI] 20.0-20.9, adult

== ENCOUNTER 2018-06-29 09:28 | Inpatient (IN) | payer MEDICARE, OTHER ==
[2018-06-29] VITALS (7 sets, daily range): BP systolic 114–154; BP diastolic 33–76
[~2018-06-29] VITALS: Ht 157.4 cm; Wt 41.9 kg
--- NOTE | ~2018-06-29 | EKG ---
[place], [place] ELECTROCARDIOGRAM REPORT NAME: AVINASH GONZALEZ UNIT #: [id number] ROOM: 405 DOCTOR: REGI DRAFT REPORT BIRTHDATE: [address] [facility] Test Date: 2018-06-29 Test Time: 10:00:29 Pat Name: AVINASH GONZALEZ Department: Room: 405 Gender: F Fisher Diving: ANNIE : 1930 Requested By: SHANNAN MORAN Order Number: [id number] Reading MD: Petar Lara MD Measurements Intervals [place] Rate: 53 P: 77 ND: 211 QRS: 54 QRSD: 92 T: 67 QT: 454 QTc: 427 Interpretive Statements Sinus rhythm Left ventricular hypertrophy Anterior infarct, old Early repolarization changes. Tall T, consider metabolic/ischemic abnormality. Compared to ECG 05/18/2018 09:02:25 Left ventricular hypertrophy now present Myocardial infarct finding now present T-wave abnormality now present Short ND interval no longer present Atrial abnormality no longer present ST (T wave) deviation still present Electronically Signed On 06-30-2018 16:01:00 PDT by Petar Lara MD CM:EKGRPT:ELECTROCARDIOGRAM REPORT 1000 1601 SHANNAN DELUNA DRAFT REPORT SHANNAN MORAN M.D.
--- NOTE | ~2018-06-29 | PR ---
[place], [place] PROGRESS NOTE NAME: AVINASH GONZALEZ [facility] #: [id number] UNIT #: [id number] ROOM: 405 DOCTOR: ALICIA VANEGAS MD BIRTHDATE: [birth year] DOS: 07/01/2018 SUBJECTIVE: The patient is resting comfortably, does not have any new complaints. OBJECTIVE: VITAL SIGNS: Blood pressure is 152/59, pulse of 59, respirations 18, temperature 98.1. LUNGS: Diminished breath sounds, clear. HEART: Irregular. ABDOMEN: Soft, scaphoid. EXTREMITIES: Without any edema. LABORATORY DATA: Urine culture finally has come back showing no bacterial growth. ASSESSMENT AND PLAN: 1. Urinary tract infection with Streptococcus viridans. 2. Sepsis ruled out with negative blood cultures. The patient is stable. The plan is to discharge her back to [facility] today. 3. Chronic atrial fibrillation, not a candidate for anticoagulants because of high risk for falls. ALICIA VANEGAS MD CM:PNTRANS 0824 0921 ALICIA VANEGAS MD 07/01/18 0919 interface
--- NOTE | ~2018-06-29 | DS ---
[place], [place] DISCHARGE SUMMARY NAME: [facility]ALEZ [id number] UNIT #: [id number] ROOM: 405 DOCTOR: ALICIA VANEGAS MD BIRTHDATE: [birth year] DOS: 07/01/2018 DIAGNOSES: 1. Urinary tract infection with Strep viridans bacteria. 2. Sepsis with negative blood cultures preliminary. 3. Chronic atrial fibrillation. 4. Moderate protein-calorie malnutrition. 5. Adult failure to thrive with multiple falls. 6. Chronic atrial fibrillation, not a candidate for anticoagulation because of high risk for fall. 7. Acute kidney injury. HOSPITAL COURSE: This patient is very well known to us from [facility]. She comes in with multiple emesis and low blood pressure. Please refer to H and P for details of the admission, the patient was placed on IV fluids. Her antihypertensives were held. The patient did have acute kidney injury. This is resolved with IV fluids. This is most likely ATN causing from hypotension. UTI was treated with IV vancomycin and the repeat urine culture has come back negative. The patient is stable without any new problems. White cell count is normalized. We are planning to discharge her back to [facility] for continued physical therapy. DISCHARGE MEDICATIONS: Coreg 3.125 twice a day, lisinopril dosage is cut down to 10 mg daily, Zocor 10 daily, levothyroxine 50 mcg daily, Estrace for local application to the perineal area daily, latanoprost eye drops 1 drop to each eye at bedtime, Combigan eyedrops 1 drop to each eye a.m. and at bedtime, and Zofran 4 mg q. 6 hours p.r.n., Augmentin 875 b.i.d. for 7 days. ALICIA VANEGAS MD CM:DISCHARG 5 1 ALICIA VANEGAS MD 07/01/18 09 interface
--- NOTE | ~2018-06-29 | WRIGHTHP ---
[place], [place] PATIENT HISTORY AND PHYSICAL EXAM NAME: AVINASH GONZALEZ [facility] #: [id number] UNIT #: [id number] ROOM: 408 DOCTOR: ALICIA VANEGAS MD BIRTHDATE: [birth year] DOS: 06/29/2018 HISTORY OF PRESENT ILLNESS: The patient is 88 years old. She is a resident currently at the [facility], [facility]. She became quite nauseous, had multiple episodes of emesis, her blood pressure dropped to 80 systolic and so that she was transferred to the hospital. She recently had a urine culture, which showed Strep viridans and she was just placed on antibiotics yesterday. She has not even taken her first dose yet. This morning, she denies having any complaints. She is pleasant, answers questions appropriately, knows she is in the hospital. Denies any chest pains, palpitations, shortness of breath, abdominal pain. PAST MEDICAL HISTORY: Significant for: 1. Last hospitalization in 05/2018 with hypertension and metabolic encephalopathy. 2. Multiple falls with adult failure to thrive. 3. Benign hypertension. 4. Mixed hyperlipidemia. 5. History of paroxysmal AFib, but in sinus rhythm, not a candidate for anticoagulation because of multiple falls. 6. Mild protein calorie malnutrition. MEDICATIONS: That she is on are lisinopril 40 mg daily, latanoprost eyedrops, brimonidine eyedrops, Coreg 3.125 twice a day, levothyroxine 50 mcg daily, simvastatin 10 daily, estradiol local application to the perineal area, and Zofran p.r.n. SOCIAL HISTORY: Nonsmoker. Does not use any alcohol. She has one grown son. She lives at home alone, but currently at [facility] undergoing physical therapy. PHYSICAL EXAMINATION: GENERAL: She is awake and alert and oriented. VITAL SIGNS: Blood pressure this morning is 187/47, pulse of 61, respirations 16, temperature 98.6. LUNGS: Diminished breath sounds. HEART: Irregular, heart rate controlled in the low 50s. ABDOMEN: Soft, scaphoid, nontender. EXTREMITIES: Without any edema. ASSESSMENT AND PLAN: 1. Hypotension with possible sepsis. Blood cultures pending. 2. Urinary tract infection with Strep viridans, streptococcus. IV vancomycin was ordered. 3. Acute kidney injury, possibly from hypotension and acute tubular necrosis, this has resolved with IV fluids. 4. Adult failure to thrive, to go back to [facility] on p.o. antibiotics tomorrow. 5. Chronic atrial fibrillation with repeated falls, not a candidate for anticoagulants. [place], [place] PATIENT HISTORY AND PHYSICAL EXAM NAME: AVINASH GONZALEZ UNIT #: [id number] ROOM: [facility] DOCTOR: ALICIA VANEGAS MD BIRTHDATE: [birth year] ALICIA VANEGAS MD CM:HISPHYS:PATIENT HISTORY AND PHYSICAL EXAMINATION 0833 0858 ALICIA VANEGAS MD 06/30/18 0856 interface
[~2018-06-29 09:28] MED LIST changes: +CARVEDILOL3.125 MG PO; +COMBIGAN 0.2%-010 ML OPH; +LATANOPROST2.5 ML OPH
[2018-06-29 10:12] LABS: BASO # 0.1 10*3/uL (0.0-0.1); BASO % 1.1 % (0.0-1.0); EOS # 0.3 10*3/uL (0.0-0.4); EOS % 3.9 % (1.0-4.0); HEMATOCRIT 28.4 % (37.0-47.0); HEMOGLOBIN 9.4 g/dl (12.0-16.0); LYMPH # 0.6 10*3/uL (1.3-4.4); LYMPH % 8.7 % (27.0-41.0); MEAN CELL VOLUME 100.4 fl (81.0-99.0); MEAN CORPUSCULAR HGB 33.2 pg (27.0-31.0); MEAN CORPUSCULAR HGB CONC 33.1 g/dl (33.0-37.0); MEAN PLATELET VOLUME 9.5 fl (9.6-12.3); MONO # 0.9 10*3/uL (0.1-1.0); NEUT # 4.6 10*3/uL (2.3-7.9); PLATELET COUNT AUTOMATED 264 10*3/uL (130-400); RED BLOOD COUNT 2.83 10*6/uL (4.10-5.10); RED CELL DISTRI WIDTH 12.3 % (0-14.5); WHITE BLOOD COUNT 6.4 10*3/uL (4.8-10.8)
[2018-06-29 10:28] LABS: ALBUMIN 2.9 gm/dl (3.1-4.5); CREATININE 1.08 mg/dL (0.55-1.02); POTASSIUM 4.3 mmol/L (3.5-5.1); TOTAL PROTEIN 6.2 gm/dL (6.4-8.2)
[2018-06-29 10:40] LABS: BILIRUBIN NEGATIVE (NEGATIVE); BLOOD NEGATIVE (NEGATIVE); CLARITY CLOUDY (CLEAR); COLOR YELLOW (YELLOW); GLUCOSE NEGATIVE (NEGATIVE); KETONE NEGATIVE (NEGATIVE); LEUKO ESTERASE 2+ (NEGATIVE); NITRITE NEGATIVE (NEGATIVE); PH 6.5 (5.0-9.0); SPECIFIC GRAVITY <= 1.005 (1.005-1.030); UROBILINOGEN 0.2 E.U./dl (0.2-1.0)
[2018-06-29 10:55] LABS: WBC TNTC wbc/hpf (0-5)
[2018-06-29 10:56] LABS: BACTERIA 3+; EPITHELIAL CELLS 16-20
--- NOTE | 2018-06-29 12:54 | NUR ---
MSADMTime: N A 88 year old admitted to 4E under services of ALICIA GUDINO MD. Pt. arrived via bed from ER. Chief complaint: NAUSEA/VOMITING. SATYA MUSA
--- NOTE | 2018-06-29 20:50 | NUR ---
PO TUMS ADMINISTERED PER ORDER FOR C/O INDIGESTION/HEARTBURN. WILL MONITOR EFFECTIVENESS. CALL LIGHT IN REACH.
--- NOTE | 2018-06-29 21:29 | NUR ---
NOTIFIED OF PATIENT'S HR 50S DURING VITALS CHECKS, THOUGH PATIENT IS NOT ON REHABILITATION COUNSELLOR. DISCUSSED 3.125 MG PO COREG SCHEDULED TO BE GIVEN AT 2200. INSTRUCTED TO HOLD FOR TONIGHT.
[2018-06-30] VITALS: BP 149/56
--- NOTE | 2018-06-30 03:08 | NUR ---
PATIENT ASLEEP IN BED. RESPIRATIONS EASY. NO S/S OF DISTRESS NOTED. WILL MONITOR. BED LOCKED IN LOW POSITION, BED ALARM INTACT, CALL LIGHT IN REACH.
[2018-06-30 06:24] LABS: BASO # 0.1 10*3/uL (0.0-0.1); BASO % 1.8 % (0.0-1.0); EOS # 0.2 10*3/uL (0.0-0.4); EOS % 4.5 % (1.0-4.0); HEMATOCRIT 27.9 % (37.0-47.0); HEMOGLOBIN 9.1 g/dl (12.0-16.0); LYMPH # 0.9 10*3/uL (1.3-4.4); LYMPH % 17.7 % (27.0-41.0); MEAN CORPUSCULAR HGB 32.6 pg (27.0-31.0); MEAN CORPUSCULAR HGB CONC 32.6 g/dl (33.0-37.0); MONO # 0.8 10*3/uL (0.1-1.0); MONO % 15.2 % (3.0-9.0); NEUT # 3.1 10*3/uL (2.3-7.9); NEUT % 60.6 % (47.0-73.0); PLATELET COUNT AUTOMATED 278 10*3/uL (130-400); RED BLOOD COUNT 2.79 10*6/uL (4.10-5.10); RED CELL DISTRI WIDTH 12.1 % (0-14.5); WHITE BLOOD COUNT 5.1 10*3/uL (4.8-10.8)
[2018-06-30 06:37] LABS: BUN 14 mg/dl (7-24); CHLORIDE 109 mmol/L (98-107); CREATININE 0.78 mg/dL (0.55-1.02); POTASSIUM 4.4 mmol/L (3.5-5.1); SODIUM 140 mmol/L (136-145)
[2018-06-30 08:00] VITALS: BP 187/47
--- NOTE | 2018-06-30 08:31 | NUR ---
case management visits with patient, patient is a skilled patient at [facility], site planner is checking to see if patient is able to return to [facility] when medically stable
[2018-06-30 09:02] VITALS: BP 158/50
[2018-06-30 12:00] VITALS: BP 162/40
[2018-06-30 16:00] VITALS: BP 183/51
[2018-06-30 20:00] VITALS: BP 145/52
[2018-07-01 00:23] VITALS: BP 152/59
[2018-07-01 08:00] VITALS: BP 176/58
--- NOTE | 2018-07-01 08:10 | NUR ---
PT RESTING IN BED WITH EYES CLOSED. AWAKENS EASILY. RESP-EASY AND REGULAR. NO C/O AT THIS TIME. POSITIONS SELF IN BED. IVF INFUSING WITH NOPROBLEM. CALL LIGHT IN REACH. BED ALARM ON.
[2018-07-01] MEDS ORDERED: LISINOPRIL10 M1 PO (08:18)
[2018-07-01] MEDS ORDERED: AUGMENTIN 875875 MG PO (08:18)
--- NOTE | 2018-07-01 08:35 | NUR ---
PHYSICAL THERAPY Patient evaluated on 4, full evaluation to follow. Continue with PT as per plan of care with fall, alarm,, decreased vision and acute debility precautions. Will require SNF. PAtient is high complexity via chart review, tests and evaluation: [id number]. Thank you for this referral. Lauryn Cervantes,PT
--- NOTE | 2018-07-01 09:00 | NUR ---
TOLERATED ROUTINE MED WITH NOPROBLEM. CALL LIGHT IN REACH. BED ALARM ON.
--- NOTE | 2018-07-01 10:29 | NUR ---
Patient is discharged to return to [facility], transportation scheduled for 12 noon with [place]. DC information faxed, notified lubin/loan clerk, nursing, NH, friend Hans and [facility].
--- NOTE | 2018-07-01 12:08 | NUR ---
CALLED [facility] GAVE REPORT TO MONTY
--- NOTE | 2018-07-01 12:20 | NUR ---
Discharge instructions reviewed with patient/family. Patient receptive and verbalizes understanding. Follow-up care arranged. Written instructions given to patient/family. HEPLOCK REMOVED 2X2 APPLIED. ESCORTED VIA AMBULANCE TO [facility]. NADJA LEMUS
[2018-07-24] MEDS ORDERED: MIRALAX17 GM PO (18:16)
[2018-07-24] MEDS ORDERED: PRESERVISION A1 EAC1 PO (18:24)
[2018-07-24] MEDS ORDERED: VITAMIN C1000 M5 PO (18:25)
[2018-07-24] MEDS ORDERED: ASPIRIN CHILDRE81 MG PO (18:26)
[2018-07-24] MEDS ORDERED: CALCIUM + D3 E1 EACH PO (18:26)
[2018-07-24] MEDS ORDERED: PEPCID COMPLET1 EACH PO (18:27)
[2018-07-27] MEDS ORDERED: AMINOPHYLLIN200 MG PO (10:54)
== END 2018-07-01 12:20 | disposition other institution (70) | DRG 314 ==
LOC: ED 09:28 → EDHOLD 11:35 → 4E 11:35
PROVIDERS: Emergency Medicine; ADMIT Internal Medicine
DX: I95.9 Hypotension, unspecified (principal); N17.0 Acute kidney failure with tubular necrosis; N39.0 Urinary tract infection, site not specified; E44.0 Moderate protein-calorie malnutrition; Z68.1 Body mass index [BMI] 19.9 or less, adult; B95.4 Other streptococcus as the cause of diseases classified elsewhere; R29.6 Repeated falls; I48.0 Paroxysmal atrial fibrillation; I25.10 Atherosclerotic heart disease of native coronary artery without angina pectoris; Z66 Do not resuscitate; Z51.5 Encounter for palliative care; E78.2 Mixed hyperlipidemia; I10 Essential (primary) hypertension; R62.7 Adult failure to thrive; I48.2 Chronic atrial fibrillation; Z88.4 Allergy status to anesthetic agent; Z88.2 Allergy status to sulfonamides; Z88.8 Allergy status to other drugs, medicaments and biological substances; Z91.048 Other nonmedicinal substance allergy status; Z86.73 Personal history of transient ischemic attack (TIA), and cerebral infarction without residual deficits; Z90.49 Acquired absence of other specified parts of digestive tract; Z98.49 Cataract extraction status, unspecified eye; Z98.51 Tubal ligation status; Z82.49 Family history of ischemic heart disease and other diseases of the circulatory system

== ENCOUNTER 2018-07-29 08:41 | Emergency (ER) | payer MEDICARE, OTHER ==
[~2018-07-29] VITALS: Wt 48.1 kg
--- NOTE | ~2018-07-29 | EKG ---
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: Mackenzie Gary : 1930 Requested By: SHANNAN MORAN Order Number: [id number] Reading MD: Demi Gonzalez MD Measurements Intervals [place] Rate: 57 P: 19 NM: 188 QRS: 57 QRSD: 97 T: 70 QT: 460 QTc: 448 Interpretive Statements Sinus rhythm Probable left ventricular hypertrophy Anterior Q waves, possibly due to LVH Minimal ST elevation, inferior leads Baseline wander in lead(s) II,III,aVF Compared to ECG 07/24/2018 17:25:51 Bradycardia, nonsinus no longer present T-wave abnormality no longer present ST (T wave) deviation still present Electronically Signed On 07-30-2018 9:46:00 PDT by Demi Gonzalez MD CM:EKGRPT:ELECTROCARDIOGRAM REPORT [id number] SHANNAN DELUNA DRAFT REPORT SHANNAN MORAN M.D.
[~2018-07-29 08:41] MED LIST changes: +AMINOPHYLLIN200 MG PO; +ASPIRIN CHILDRE81 MG PO; +AUGMENTIN 875875 MG PO; +CALCIUM + D3 E1 EACH PO; +LISINOPRIL10 M1 PO; +MIRALAX17 GM PO; +PRESERVISION A1 EAC1 PO; +VITAMIN C1000 M5 PO
[2018-07-29 09:11] LABS: BASO # 0.1 10*3/uL (0.0-0.1); BASO % 1.1 % (0.0-1.0); EOS # 0.2 10*3/uL (0.0-0.4); EOS % 3.6 % (1.0-4.0); HEMATOCRIT 28.9 % (37.0-47.0); HEMOGLOBIN 9.6 g/dl (12.0-16.0); LYMPH # 1.1 10*3/uL (1.3-4.4); LYMPH % 25.1 % (27.0-41.0); MEAN CELL VOLUME 99.3 fl (81.0-99.0); MEAN CORPUSCULAR HGB CONC 33.2 g/dl (33.0-37.0); MEAN PLATELET VOLUME 9.4 fl (9.6-12.3); MONO # 0.5 10*3/uL (0.1-1.0); MONO % 11.1 % (3.0-9.0); NEUT # 2.7 10*3/uL (2.3-7.9); NEUT % 58.9 % (47.0-73.0); PLATELET COUNT AUTOMATED 201 10*3/uL (130-400); RED BLOOD COUNT 2.91 10*6/uL (4.10-5.10); WHITE BLOOD COUNT 4.5 10*3/uL (4.8-10.8)
[2018-07-29 09:31] LABS: ALBUMIN 2.9 gm/dl (3.1-4.5); ALKALINE PHOSPHATASE 48 U/L (45-117); BUN 13 mg/dl (7-24); CHLORIDE 103 mmol/L (98-107); CREATININE 0.94 mg/dL (0.55-1.02); POTASSIUM 4.2 mmol/L (3.5-5.1); SGOT/AST 10 IU/L (3-35); SGPT/ALT 13 U/L (12-78); SODIUM 136 mmol/L (136-145); TOTAL PROTEIN 5.8 gm/dL (6.4-8.2)
[2018-07-29 10:13] VITALS: BP 116/35
== END 2018-07-29 11:23 | disposition home or self-care (01) ==
LOC: ED 08:41
PROVIDERS: Emergency Medicine
DX: I95.9 Hypotension, unspecified (principal); R40.20 Unspecified coma; I25.10 Atherosclerotic heart disease of native coronary artery without angina pectoris; I10 Essential (primary) hypertension; E78.5 Hyperlipidemia, unspecified; I48.0 Paroxysmal atrial fibrillation; Z79.899 Other long term (current) drug therapy; Z79.82 Long term (current) use of aspirin; Z88.2 Allergy status to sulfonamides; Z88.4 Allergy status to anesthetic agent; Z86.73 Personal history of transient ischemic attack (TIA), and cerebral infarction without residual deficits